=== PATIENT | male | born 1965 | race Two or more races ===

== ENCOUNTER 2018-08-01 11:25 | Day surgery (SDC) | payer BC ==
[~2018-08-01] VITALS: Ht 167.6 cm; Wt 94.1 kg
[~2018-08-01 11:25] MED LIST: DIAZ5 PO; MIGRAINE RELIE1 EACH PO; OXYACE5T PO; Percocet 5-3251 EACH PO; Treximet 85-501 EACH
--- NOTE | 2018-08-01 14:03 | NUR ---
08/01/18 1403 Karina Alonzo PT WOKE UP VERY AGITATED ATTEMPTING TO PULL OUT IV, BP CUFF, AND PULSE OX. RN SUCCESSFULLY OBTAINED 1 BP AND DC'D IV AND MONITOR EQUIPEMENT SOON POSSIBLE. PT WARNED RN IN PREOP THAT HE "ALWAYS WAKES UP COMBATIVE AFTER MEDICINE." VSS DC INSTRUCTIONS REVIEWED WITH PT AND . PT SBA TO CAR.
== END 2018-08-01 13:56 | disposition home or self-care (01) ==
LOC: ORSCSDS 11:25
PROVIDERS: Surgery
PROC: 0DBK8ZX Excision of Ascending Colon, Via Natural or Artificial Opening Endoscopic, Diagnostic (ICD-10-PCS; principal; 2018-08-01 13:00)
DX: Z12.11 Encounter for screening for malignant neoplasm of colon (principal); Z86.010 Personal history of colon polyps; D12.2 Benign neoplasm of ascending colon; F17.220 Nicotine dependence, chewing tobacco, uncomplicated; E66.9 Obesity, unspecified; Z68.32 Body mass index [BMI] 32.0-32.9, adult; Z79.899 Other long term (current) drug therapy
CPT/HCPCS: 88305; J2704; J7120